=== PATIENT | male | born 1990 | race Caucasian/White ===

== ENCOUNTER → 2021-04-28 14:59 | Outpatient (BNVA) | payer OTHER, SELFPAY | PROVIDERS: PCP Internal Medicine; Visit Provider Surgery | DX: K40.90 Unilateral inguinal hernia, without obstruction or gangrene, not specified as recurrent (principal) | CPT/HCPCS: 99202 ==

== ENCOUNTER → 2021-06-09 10:48 | Outpatient (BNVA) | payer OTHER, SELFPAY | PROVIDERS: PCP Internal Medicine; Visit Provider Urology | DX: F41.8 Other specified anxiety disorders (principal) | CPT/HCPCS: 99202 ==

== ENCOUNTER 2022-05-15 16:30 | Outpatient (REF) | payer BC, SELFPAY ==
--- NOTE | ~2022-05-15 | MR_ITS ---
EXAMINATION: MR LUMBAR SPINE WITHOUT CONTRAST CLINICAL INFORMATION: Lumbar pain. L4-5 protrusion. L5 mass effect. Rule out disc. Patient reports no prior spine surgery. COMPARISON: MRI 11/01/2017 TECHNIQUE: MRI of the lumbar spine was obtained using routine sequences without contrast. FINDINGS: VERTEBRAL BODIES AND PARASPINAL STRUCTURES: There are 5 nonrib-bearing lumbar type vertebral bodies. Vertebral body heights and sagittal alignment are maintained. Marrow signal is within normal limits. No marrow edema. Demonstrated is disc desiccation and mild disc height loss at L4-5. Otherwise the discs appear normal in height and hydration. The aorta is normal in caliber. No adenopathy. Paraspinal muscle bulk is symmetric. The imaged SI joints appear minimally degenerated. CONUS MEDULLARIS AND CAUDA EQUINA: The conus terminates normally at L1. There is normal signal within the conus medullaris, cauda equina, and along the expected course of the filum terminale. SPINAL LEVELS: T12-L1: Normal disc morphology without central foraminal stenosis. There are small Schmorl's nodes at this level without surrounding endplate edema. L1-L2: Normal disc morphology. There is mild facet hypertrophy. The central canal and foramen are maintained. L2-L3: Minor disc bulge with shallow bilateral foraminal protrusions and facet hypertrophy. Canal is well maintained. The foramina are minimally narrowed. Findings similar to previous. L3-L4: There is a disc bulge and mild facet hypertrophy. The canal is maintained. There is mild bilateral foraminal narrowing. L4-L5: There is a broad-based central disc protrusion which is decreased in size as compared to previous.. This is superimposed on a broad-based posterior disc bulge/protrusion. There is a central annular fissure. Mild facet atrophy, thickening of the ligamentum flavum and mild prominence of the posterior epidural fat results in mild to moderate narrowing of the thecal sac with partial effacement of the CSF. Disc protrusion is abutting the traversing left L5 nerve. The foramina appear mildly narrowed. L5-S1: There is a shallow central protrusion without neural impingement. The canal is well maintained. Minor facet hypertrophy. The foramina are minimally narrowed. MR/MR lumbar spine wo con IMPRESSION: L4-5: There is a central disc protrusion, decreased in size as compared to previous. This is superimposed on a broad-based disc bulge/protrusion.. The disc protrusion is abutting the traversing left L5 nerve. Central annular fissure. Mild to moderate narrowing of the thecal sac, partial effacement of the CSF. There is otherwise mild lumbar spondylosis without definite neural management. Findings appear similar as compared to previous.
== END 2022-05-15 16:31 | disposition home or self-care (01) ==
LOC: HO.MRI 16:30
PROVIDERS: PCP Internal Medicine; Visit Provider Internal Medicine
DX: M54.50 Low back pain, unspecified (principal); M51.26 Other intervertebral disc displacement, lumbar region
CPT/HCPCS: 72148

== ENCOUNTER 2025-03-18 10:38 | Outpatient (AMB) | payer OTHER, SELFPAY ==
--- NOTE | 2025-03-18 10:39 | A.OFFPC_ITS ---
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: No Accompanied by: Self / Same As Patient Allergies No Known Allergies (No Known Allergies*) Allergy (Verified 03/18/25 10:54) Medication List - Last Reconciled 03/18/25 by Niyah Redmond PA-C No Known Home Meds Tobacco use date assessed: 03/18/25 Dental Screening Dental Screen Date: 03/18/25 Did you have a dental visit in the last 12 months?: Yes Did you have a dental problem in the last 6 months where you did not have access to dental care?: No Was dental information given to patient?: Patient has dentist HPI Establish Care HPI Details The patient is a 34-year-old male presenting for an annual physical examination and to establish care with a new primary care provider. The patient reports a family history of prostate cancer, with his father having undergone prostate removal and remaining cancer-free since the procedure. He denies any urinary symptoms such as dysuria, hematuria, or abnormal discharge, although he occasionally experiences increased frequency of urination, which he attributes to high fluid intake, particularly soda. The patient has no significant past medical history and is not currently on any medications. He maintains a healthy lifestyle, abstaining from smoking and alcohol consumption. His last physical examination was in 2021, and previous blood work in 2019 showed normal results, including cholesterol levels and kidney function. 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 Social History Housing: House Alcohol intake: current Alcohol intake frequency: does not drink Patient Tobacco Use Status: Never used Tobacco service: No Current occupational status: employed Cognitive needs: No Hearing needs: No Vision needs: No Questionnaire PHQ-9 Over the last 2 weeks, how often have you been bothered by any of the following problems? 1. Little interest or pleasure in doing things: not at all 2. Feeling down, depressed, or hopeless: not at all 3. Trouble falling or staying asleep, or sleeping too much: not at all 4. Feeling tired or having little energy: not at all 5. Poor appetite or overeating: not at all 6. Feeling bad about yourself - or that you are a failure or have let yourself or your family down: not at all 7. Trouble concentrating on things, such as reading the newspaper or watching television: not at all 8. Moving or speaking so slowly that other people could have noticed. Or the opposite - being so fidgety or restless that you have been moving around a lot more than usual: not at all 9. Thoughts that you would be better off or of hurting yourself in some way: not at all Total score: 0 Depression Screening Interpretation: Negative Depression Screening Done: Yes 76983 - PHQ-9 Billing: Yes Source: Developed by Drs. Vlad Carrero, Adri Avelar, Ion James and colleagues, with an educational miguel angel from [employer]. Thrive Questionnaire Date Thrive assessed: 03/18/25 I am a: Patient What is your living situation today?: I have a steady place to live Within the past 12 months, did the food you bought not last and you didn't have the money to get more?: Never true Within the past 12 months, did you worry whether your food would run out before you got money to buy more?: Never true Do you have trouble paying for medicines?: No Do you have trouble getting transportation to medical appointments?: No Do you have trouble paying your heating and electricity bill?: No Do you have trouble taking care of your child, family member or friend?: No Do you have trouble with day-to-day activities such as bathing, preparing meals, shopping, managing finances, etc.?: No Are you currently unemployed and looking for a job?: No Are you interested in more education?: No Please select the resources that you would like help with: None Currently or been in a relationship where the following occur: No concerns reported THRIVE Score: 0 AUDIT C Alcohol Use Questionnaire (AUDIT-C) 1. How often do you have a drink containing alcohol?: Never 3. How often do you have six or more drinks on one occasion?: Never Total Score: 0 Score Reviewed/Action Taken: No NAZ-7 AMB Questionnaire NAZ-7 Date NAZ - 7 assessed: 03/18/25 Feeling nervous, anxious, or on edge: 0 = Not at all Not being able to stop or control worryin = Not at all Worrying too much about different things: 0 = Not at all Trouble relaxin = Not at all Being so restless that it is hard to sit still: 0 = Not at all Becoming easily annoyed or irritable: 0 = Not at all Feeling afraid as if something awful might happen: 0 = Not at all Total NAZ-7 score (0-4 normal; 5-9 mild; 10-14 moderate; 15-21 severe): 0 Source: Developed by Drs. Vlad Carrero, Adri Avealr, Ion James and colleagues, with an educational miguel angel from [employer]. NAZ-7 Assessment Billing NAZ-7 Assessment Tool: NAZ-7 Assessment 79043 Review of Systems Const Details: - Genitourinary: Denies dysuria, hematuria, or abnormal discharge; reports occasional increased frequency of urination attributed to high fluid intake - Gastrointestinal: Denies black or bloody stools, unintentional weight loss, or weight gain - Respiratory: Denies cough, hemoptysis, or wheezing All systems reviewed & are unremarkable except as noted in HPI and below Physical exam (Primary Care) Vital Signs: Last Vital Signs Temp 99 F 03/18/25 10:44 Pulse 69 03/18/25 10:44 Resp 16 03/18/25 10:44 BP 104/74 03/18/25 10:44 Pulse Ox 96 03/18/25 10:44 Oxygen Delivery Method Room Air 03/18/25 10:44 Care Plan Goal for BP management: <140/90 at Goal BMI result Body Mass Index 28.4 Tobacco/Smoking Status: Tobacco use Status Tobacco use date assessed 03/18/25 03/18/25 10:44 Patient Tobacco Use Status Never used Tobacco 03/18/25 10:44 PHQ-9: PHQ-9 Score PHQ-9: Total score 0 03/18/25 10:44 Depression Screening Interpretation: Negative Thrive Assessment: Date of Thrive Assessment Date Thrive assessed 03/18/25 03/18/25 10:44 Currently or been in a relationship where the following occur: No concerns reported Const Other: Appearance: Alert. Oriented X3. No acute distress. Head: Normal external exam. Normocephalic. Atraumatic. Eyes: Pupils are equal, round, and reactive to light. Extraocular movements intact. Conjunctiva and sclera normal. Eyelids normal. Ears: External auditory canal normal. Tympanic membranes normal. No wax noted. Throat: Pharynx normal. Uvula midline. Moist mucous membranes. Neck: Normal inspection. Neck supple. Full range of motion. No adenopathy. Thyroid Normal. No meningeal signs. No neck mass noted. Cardiovascular: Normal heart rate and rhythm. Heart sound normal. No murmurs noted. Pulses normal throughout. Respiratory: No respiratory distress. Painless inspiration. Breath sounds normal. No wheezes/rales/rhonchi noted. Chest nontender. No accessory muscle usage noted or decreased air movement noted. Abdomen: Soft and nontender. Bowel sounds normal in all 4 quadrants. No distention noted. No organomegaly noted. No visible injury noted. Back: No costovertebral angle tenderness. Full range of motion noted. Skin: Skin warm and dry. Normal skin color. Normal skin turgor. No rashes/lesions/lacerations noted. Extremities: No lower extremity edema. Extremities exhibit normal range of motion. Extremities nontender. No pain in the legs when pressure applied. Neuro: Oriented X 3. No motor deficit. No sensory deficit. Reflexes normal. Coding Level of Care Code New Pt Level 4 (23675) New Pt Prev Care 18-39yr(59806 Diagnoses Establishing care with new doctor, encounter for Z76.89 Annual physical exam Z00.00 Prostate cancer screening Z12.5 Screening for thyroid disorder Z13.29 Preventative health care Z00.00 Screening for cholesterol level Z13.220 Diabetes mellitus screening Z13.1 Additional Codes PHQ-9 - 17507 - PHQ-9 Billing: Yes ([id number]) NAZ-7 Assessment Billing - NAZ-7 Assessment Tool: NAZ-7 Assessment 79387 ([id number]) Assessment & Plan Assessment & Plan (1) Establishing care with new doctor, encounter for: Code(s): Z76.89 - Persons encountering health services in other specified circumstances Category: Medical (2) Annual physical exam: Code(s): Z00.00 - Encounter for general adult medical examination without abnormal findings Category: Medical (3) Prostate cancer screening: Code(s): Z12.5 - Encounter for screening for malignant neoplasm of prostate Category: Medical Plan: The patient will undergo prostate cancer screening due to a family history of prostate cancer, with his father having been affected. A PSA test will be conducted to assess the risk of prostate cancer. (4) Screening for thyroid disorder: Code(s): Z13.29 - Encounter for screening for other suspected endocrine disorder Category: Medical Plan: A thyroid function test will be performed to assess thyroid health as part of routine screening. (5) Preventative health care: Code(s): Z00.00 - Encounter for general adult medical examination without abnormal findings Category: Medical Plan: Vitamin B12 and Vitamin D levels will be checked to ensure adequate nutritional status. (6) Screening for cholesterol level: Code(s): Z13.220 - Encounter for screening for lipoid disorders Category: Medical Plan: Cholesterol levels will be reassessed to monitor cardiovascular health, following previous normal results. (7) Diabetes mellitus screening: Code(s): Z13.1 - Encounter for screening for diabetes mellitus Category: Medical Plan: The patient will have a hemoglobin A1c test to screen for diabetes, especially considering occasional increased urination frequency. Plan Plan Patient was informed and verbally consented to the use of an ambient scribe for clinic note documentation during this visit. 1. Preventative Care: Prostate Cancer Screening The patient will undergo prostate cancer screening due to a family history of prostate cancer, with his father having been affected. A PSA test will be conducted to assess the risk of prostate cancer. 2. Preventative Care: Diabetes Screening The patient will have a hemoglobin A1c test to screen for diabetes, especially considering occasional increased urination frequency. 3. Preventative Care: Thyroid Function Test A thyroid function test will be performed to assess thyroid health as part of routine screening. 4. Preventative Care: Vitamin B12 And Vitamin D Levels Vitamin B12 and Vitamin D levels will be checked to ensure adequate nutritional status. 5. Preventative Care: Cholesterol Screening Cholesterol levels will be reassessed to monitor cardiovascular health, following previous normal results. I discussed with the patient the importance of regular screenings, including prostate cancer screening due to his family history, and diabetes screening given his occasional increased urination frequency. We also talked about the need for thyroid function tests and checking vitamin levels to ensure overall health. I advised him on the locations for blood work and the importance of fasting before the tests. Orders: Orders Comprehensive [place]. Panel Fast Today Z00.00 - Encounter for general adult medical examination without abnormal findings PSA,Total (Free>4and<10) Today Z00.00 - Encounter for general adult medical examination without abnormal findings TSH reflex Free T4 Today Z00.00 - Encounter for general adult medical examination without abnormal findings Testosterone, Free/Total Today Z00.00 - Encounter for general adult medical examination without abnormal findings DHEA Sulfate Today Z00.00 - Encounter for general adult medical examination without abnormal findings C Reactive Protein Today Z00.00 - Encounter for general adult medical examination without abnormal findings Complete Blood Count Auto Diff Today Z00.00 - Encounter for general adult medical examination without abnormal findings Liver Panel Today Z00.00 - Encounter for general adult medical examination without abnormal findings Lipid Panel Today Z00.00 - Encounter for general adult medical examination without abnormal findings Hemoglobin A1c Today Z00.00 - Encounter for general adult medical examination without abnormal findings Vitamin B12 and Folate Today Z00.00 - Encounter for general adult medical examination without abnormal findings Vitamin D 25-OH Total Today Z00.00 - Encounter for general adult medical examination without abnormal findings Magnesium Today Z00.00 - Encounter for general adult medical examination without abnormal findings Dihydrotestosterone Today Z00.00 - Encounter for general adult medical examination without abnormal findings Patient Instructions: - Schedule and complete blood work, ensuring fasting for 10-12 hours prior. - Follow up in six months for routine check-up or sooner if any issues arise. - Monitor for any new symptoms such as changes in urination or gastrointestinal issues and report them promptly.
[2025-03-18 10:44] VITALS: BP 104/74; PULSE 69; RESP 16; TEMP 37.2; O2SAT 96; BMI 28.4
--- OUTSIDE RECORDS SUMMARY | 2025-03-18 11:40 | XMS_ITS | Clinical Summary ---
Author Organization [facility] Address [address] [place] [address] Care Team Providers Care Line Manager Name Role Phone Unknown Pcp, Non Rmg Primary Care Provider Unava ilable Allergies No known active allergies Medications No known medications Active Problems Problem Noted Date Diagnosed Date Screening for diabetes mellitus 12/11/2012 Screening for lipoid disorders 12/11/2012 Routine health maintenance 12/11/2012 Overview (06/22/2014): Reviewed Up-to-date with tetanus, declining flu vaccine. Maintenance labs normal last year. Follow-up in next couple of years. Discussed healthy lifestyle including safe sex practices. 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 Patient states that his symptoms never improved and still has recurrence of off-and-on leakage. Patient advised to call surgery at and discuss further options. Immunizations Immunization Administration Dates Next Due DT (pediatric) 02/24/2010 Social History Tobacco Use Types Packs/Day Years Used Date Smoking Tobacco: Never Alcohol Use Standard Drinks/Week Comments Not Asked 0 (1 standard drink = 0.6 oz pur e alcohol) Sex and Gender Information Value Date Recorded Sex Assigned at Not on file Legal Sex Male 9:21 AM EDT Gender Identity Not on file Sexual Orientation Not on file Last Filed Vital Signs Vital Sign Reading Time Taken Comments Blood Pressure 110/68 05/27/2015 3:55 PM EDT Pulse 66 05/27/2015 3:55 PM EDT Temperature 36.2 C (97.1 F) 06/22/2014 11:22 AM EDT Respiratory Rate - - Oxygen Saturation - - Inhaled Oxygen Concentration - - Weight 95.3 kg (210 lb) 05/27/2015 3:55 PM EDT Height 182.9 cm (6') 06/22/2014 11:22 AM EDT Body Mass Index 28.48 06/22/2014 11:22 AM EDT Plan of Treatment Health Maintenance Due Date Last Done Comments Hep B (1 of 3 - 19+ 3-dose series) 2007 COVID-19 Vaccine (2023-2 5 season) 2024 Influenza (#1) 2025 Zoster (Shingrix) (1 of 2) 2038 Hepatitis C Screening Completed 01/15/2013 HPV Vaccine Aged Out No longer eligi ble based on patient's age to complete this topic Hep A Aged Out No longer eligi ble based on patient's age to complete this topic Hib Aged Out No longer eligi ble based on patient's age to complete this topic Meningococcal ACWY Aged Out No longer eligible based on patient's age to complete this topic Pneumococcal Aged Out No longer eligi ble based on patient's age to complete this topic Procedures * Due to [place] [employer] law, this organization might not be sharing negative HIV tests. Procedure Name Priority Date/Time Associated Diagnosis Comments HEPATITIS C AB WITH REFLEX TO RNA PCR, SERUM Routine 01/15/2013 11:41 AM EDT Routine health maintenance Need for hepatitis C screening test from Last 3 Months or Most Recently Relevant to Health Maintenance Results * Due to [place] [employer] law, this organization might not be sharing negative HIV tests. * HEPATITIS C ANTIBODY, SERUM (01/15/2013 11:41 AM EDT) Hepatitis C virus Ab NON-REACTI VE NON-REACT JAD [facility] Comment:{HEPATITIS C ANTIBOD Y {[id number]) Hepatitis C virus Ab Signal/Cutoff 0.03 <1.00 [facility] Comment:{SIGNAL TO CUT-OFF { [id number]) 01/15/2013 11:4 1 AM EDT 01/15/2013 5:04 PM EDT Narrative Resulting Agency Comment [id number] Nick Galloway MD LABORATORY Final Result [facility] [address] [place] [address] from Last 3 Months or Most Recently Relevant to Health Maintenance Care Teams Line Manager Relationship Specialty Start Date End Date Unknown Pcp, Non Rmg PCP - General 01/19/17
== END 2025-03-18 11:10 | disposition home or self-care (01) ==
LOC: HO.HMCSH 10:38
PROVIDERS: PCP Physician Assistant Medical; Visit Provider Physician Assistant Medical
DX: Z00.00 Encounter for general adult medical examination without abnormal findings (principal); Z12.5 Encounter for screening for malignant neoplasm of prostate; Z13.29 Encounter for screening for other suspected endocrine disorder; Z13.220 Encounter for screening for lipoid disorders; Z13.1 Encounter for screening for diabetes mellitus

== ENCOUNTER → 2025-03-18 10:38 | Outpatient (BNVA) | payer OTHER, SELFPAY | PROVIDERS: PCP Physician Assistant Medical; Visit Provider Physician Assistant Medical | DX: Z00.00 Encounter for general adult medical examination without abnormal findings (principal); Z76.89 Persons encountering health services in other specified circumstances | CPT/HCPCS: 96127 ==

== ENCOUNTER 2025-03-19 11:12 | Outpatient (REF) | payer OTHER, SELFPAY ==
--- OUTSIDE RECORDS SUMMARY | 2025-03-19 12:07 | XMS_ITS | Clinical Summary ---
Author Organization [facility] Address [address] [place] [address] Care Team Providers Care Mine Safety Director Name Role Phone Unknown Pcp, Non Rmg [...] had surgical repair in February 2014 at [facility]. Patient states that his symptoms never [...] complete this topic Procedures * Due to [place] [employer] law, this organization might not be sharing negative HIV tests. Procedure Name Priority Date/Time Associated Diagnosis Comments HEPATITIS C AB WITH REFLEX TO RNA PCR, SERUM Routine 01/15/2013 11:41 AM EDT Routine health maintenance Need for hepatitis C screening test from Last 3 Months or Most Recently Relevant to Health Maintenance Results * Due to [place] [employer] law, this organization might not be sharing negative HIV tests. * HEPATITIS C ANTIBODY, SERUM (01/15/2013 11:41 AM EDT) Hepatitis C virus Ab NON-REACTI VE NON-REACT JAD [facility] Comment:{HEPATITIS C ANTIBOD Y {[id number]) Hepatitis C virus Ab Signal/Cutoff 0.03 <1.00 [facility] Comment:{SIGNAL TO CUT-OFF { [id number]) 01/15/2013 11:4 1 AM EDT 01/15/2013 5:04 PM EDT Narrative Resulting Agency Comment [id number] Nick Galloway MD LABORATORY Final Result [facility] [address] [place] [address] from Last 3 Months or Most Recently Relevant to Health Maintenance Care Teams Mine Safety Director Relationship Specialty Start Date End Date Unknown Pcp, Non Rmg PCP - General 01/19/17
[2025-03-19 13:13] LABS: MANUAL DIFF FLAG NO
[2025-03-19 13:26] LABS: Hematocrit 43.4 % (42.0-52.0); Hemoglobin 14.8 g/dl (14.0-18.0); Imm Gran Abs Auto 0.02 X10*3/uL (0.00-0.03); Imm Gran Pct Auto 0.4 % (0.0-0.4); Lymphocytes Absolute Auto 1.7 X10*3/uL (1.2-4.9); Mean Corpuscular HGB Conc 34.1 g/dl (31.0-36.0); Mean Corpuscular Hemoglobin 29.7 pg (27.0-33.0); Mean Corpuscular Volume 87.1 fL (80.0-98.0); NRBC Abs Auto 0.000 X10*3/uL (0.0-0.012); NRBC Pct Auto 0.0 /100WBC (0.0-0.2); Platelet Count 219 X10*3/uL (160-400); Red Blood Count 4.98 X10*6/uL (4.60-5.80); White Blood Count 5.1 X10*3/uL (4.8-10.8)
[2025-03-19 13:39] LABS: Hemoglobin A1C 127.8588 umol/L; Total Hemoglobin (HGBA1C) 3834.2679 umol/L
[2025-03-19 16:48] LABS: Alanine Aminotransferase 22 U/L (0-40); Albumin Level 4.5 g/dL (3.5-5.0); Alkaline Phosphatase 52 U/L (39-117); Aspartate Amino Transferase 33 U/L (5-37); Blood Urea Nitrogen 17 mg/dL (9-16); Calcium 8.7 mg/dL (8.4-10.2); Carbon Dioxide 26 mmol/L (22-29); Chloride 108 mmol/L (96-108); Cholesterol 211 mg/dL (<200); Estimated Glomerular Filt Rate > 60; HDL Cholesterol 42 mg/dL (>40); Magnesium 2.2 mg/dL (1.6-2.6); Potassium 4.1 mmol/L (3.3-5.1); Sodium 143 mmol/L (135-145); Total Protein 7.4 g/dL (6.5-8.0); Triglycerides 76 mg/dL (<150)
[2025-03-19 16:53] LABS: Anion Gap 15 (12-20)
[2025-03-19 17:05] LABS: PSA,Total (Free>4and<10) 0.85 ng/mL (0.00-4.00)
[2025-03-19 17:19] LABS: Folate 10.6 ng/mL (> or = 4.0); Vitamin B12 754 pg/mL (200-900)
[2025-03-25 18:43] LABS: Testosterone, Free 95.9 pg/mL (35.0-155.0)
== END 2025-03-19 11:13 | disposition home or self-care (01) ==
LOC: HO.HMGCLDS 11:12
PROVIDERS: PCP Internal Medicine; Visit Provider Physician Assistant Medical
DX: Z00.00 Encounter for general adult medical examination without abnormal findings (principal); Z12.5 Encounter for screening for malignant neoplasm of prostate
CPT/HCPCS: 36415; 80053; 80061; 80076; 82248; 82306; 82607; 82627; 82642; 82746; 83036; 83735; 84153; 84402; 84403; 84443; 85025; 86140